=== PATIENT | female | born 1995 | race Two or more races ===

== ENCOUNTER 2019-05-22 18:04 | Emergency (ER) | payer OTHER ==
[2019-05-22] MEDS ORDERED: ONDANSETRON HCL INJ/PF 4 MG/2 ML SDV IV ONE (18:28)
[2019-05-22] MEDS ORDERED: MORPHINE SULFATE 10 MG/ML INJ IV ONE (18:28)
--- NOTE | 2019-05-22 18:30 | ER Document Report ---
ED Medical Screen (RME) - General Chief Complaint: Post Problem Stated Complaint: ABDOMINAL PAIN Time Seen by Provider: 05/22/19 18:19 - HPI Notes: 05/22/19 18:29 23-year-old female to the emergency department with complaints of progressively worsening pelvic pain and vaginal bleeding for the past 2 days. She states that she had her third child 3 days ago at [facility]. She states that she had a natural childbirth and everything seemed to be going okay. However during her stay she began to experience significant pelvic pain. Apparently she was discharged home but then had an episode of syncope at home and was brought back to [facility]. It was found that she had retained products in her uterus and she was taken for D&C. She states that she continues to complain of worsening pain but she was told that it was because she had given naturally and because she was breast-feeding. She states that she has had chills but denies any fevers. She states that she feels lightheaded. She states that she is taking Tylenol, Motrin, iron. I performed a brief medical screening exam of the patient determined that she will need further evaluation and management by me inside provider. I placed initial orders to help expedite her care. - Related Data Allergies/Adverse Reactions: pineapple Allergy (Verified 05/22/19 18:14) Past Medical History - Social History Frequency of alcohol use: None Drug Abuse: None
[2019-05-22] MEDS ORDERED: NORMAL SALINE 1000 ML 1,000 ML IV ONE (18:33)
[2019-05-22 19:17] LABS: ABSOLUTE EOSINOPHILS # (AUTO) 0.1 10^3/uL (0.0-0.6); ABSOLUTE LYMPHOCYTES (AUTO) 2.1 10^3/uL (0.5-4.7); ABSOLUTE MONOCYTES (AUTO) 0.4 10^3/uL (0.1-1.4); ABSOLUTE NEUT (AUTO) 3.1 10^3/uL (1.7-8.2); BASOPHILS % (AUTO) 0.6 % (0-2); EOSINOPHILS % (AUTO) 2.3 % (0-6); HEMATOCRIT 32.5 % (36.0-47.0); HEMOGLOBIN 10.8 g/dL (12.0-15.5); MEAN CORPUSCULAR HEMOGLOBIN 29.7 pg (27.0-33.4); MEAN CORPUSCULAR HGB CONC 33.1 g/dL (32.0-36.0); MEAN CORPUSCULAR VOLUME 90 fl (80-97); MONOCYTES % (AUTO) 6.9 % (3-13); PLATELET COUNT 483 10^3/uL (150-450); RED BLOOD COUNT 3.63 10^6/uL (3.72-5.28); RED CELL DISTRIBUTION WIDTH 14.9 % (11.5-14.0); SEGMENTED NEUTROPHILS % (AUTO) 54.2 % (42-78); TOTAL CELLS COUNTED % (AUTO) 100 %; WHITE BLOOD COUNT 5.7 10^3/uL (4.0-10.5)
[2019-05-22 19:35] LABS: ALBUMIN 3.9 g/dL (3.5-5.0); ALKALINE PHOSPHATASE 150 U/L (38-126); ANION GAP 10 (5-19); ASPARTATE AMINO TRANSFERASE 53 U/L (14-36); BILIRUBIN,DIRECT 0.2 mg/dL (0.0-0.4); BILIRUBIN,TOTAL 0.2 mg/dL (0.2-1.3); BLOOD UREA NITROGEN 14 mg/dL (7-20); CALCIUM 9.4 mg/dL (8.4-10.2); CARBON DIOXIDE 27 mmol/L (22-30); CHLORIDE 103 mmol/L (98-107); GLUCOSE 84 mg/dL (75-110); POTASSIUM 4.4 mmol/L (3.6-5.0); TOTAL PROTEIN 7.2 g/dL (6.3-8.2)
--- NOTE | 2019-05-22 20:16 | RADIOLOGY REPORT (SQ) ---
EXAM DESCRIPTION: US PELVIS COMPLETED DATE/TME: 05/22/2019 18:27 CLINICAL HISTORY: 23 years, Female, eval for retained products. COMPARISON: None. TECHNIQUE: Transabdominal. Grayscale color and spectral Doppler. 58 images LIMITATIONS: None. FINDINGS: Uterus measures 9.4 x 6.1 x 10.7 cm. The endometrial stripe complex is prominent 2.1 cm. It is mildly irregular with fluid and debris within it. No color Doppler seen in this distribution. The cervix measures 2.7 cm. It appears closed. Right ovary measures 4.0 x 2.2 x 2.0 cm. Left ovary measures 3.7 x 1.6 x 1.8 cm. Normal color and spectral Doppler imaging. No significant free fluid IMPRESSION: Retained products. copyright 2011 [email or web address]- All Rights Reserved
[2019-05-22] MEDS ORDERED: PROMETHAZINE HCL INJ 25 MG/1 ML VIAL IV ONE (20:25)
[2019-05-22 21:24] LABS: APPEARANCE,URINE SLIGHTLY-CLOUDY; BILIRUBIN,URINE NEGATIVE (NEGATIVE); COLOR,URINE YELLOW; GLUCOSE, URINE NEGATIVE (NEGATIVE); KETONES,URINE NEGATIVE (NEGATIVE); LEUKOCYTE ESTERASE,URINE TRACE (NEGATIVE); NITRITE,URINE NEGATIVE (NEGATIVE); PROTEIN,URINE NEGATIVE (NEGATIVE); UROBILINOGEN,URINE NEGATIVE mg/dL (<2.0)
[2019-05-23] MEDS ORDERED: METHYLERGONOVINE MALEATE 0.2 MG TABLET PO ONE (00:06)
--- NOTE | 2019-05-23 00:10 | ER Document Report ---
ED General - General Chief Complaint: Post Problem Stated Complaint: ABDOMINAL PAIN Time Seen by Provider: 05/22/19 18:19 - HPI Notes: 23-year-old female 3 para 3 who is 1 week presenting with complaints of pelvic cramping, chills and intermittent passage of small amounts of blood clots about size of a quarter. This lady had an uncomplicated vaginal delivery at [facility] week ago. The patient was apparently readmitted to the inpatient service there because of bleeding related to retained products of conception. She underwent a D&C and was sent home on acetaminophen, ibuprofen, iron, stool softener and vitamin C. She has had some small amount of vaginal bleeding today with passage of some clots about size of a quarter. She complains of some pelvic cramping. She was chilled at home but did not measure fever. She was nauseated without vomiting. She is currently breast-feeding. decided to bring her to [facility] for "second opinion". - Related Data Allergies/Adverse Reactions: pineapple Allergy (Verified 05/22/19 18:14) Past Medical History - General Information source: Patient, Relative - Social History Smoking Status: Never Smoker Frequency of alcohol use: None Drug Abuse: None Family History: Reviewed & Not Pertinent Patient has suicidal ideation: No Patient has homicidal ideation: No Review of Systems - Review of Systems Notes: Constitutional: Negative for fever. HENT: Negative for sore throat. Eyes: Negative for visual changes. Cardiovascular: Negative for chest pain. Respiratory: Negative for shortness of breath. Gastrointestinal: Positive for nausea. Negative for abdominal pain, vomiting or diarrhea. Genitourinary: As per HPI. Musculoskeletal: Negative for back pain. Skin: Negative for rash. Neurological: Negative for headaches, weakness or numbness. 10 point ROS negative except as marked above and in HPI. Physical Exam - Vital signs Vitals: Temp Pulse Resp BP Pulse Ox 98.2 F 92 18 131/82 H 100 05/22/19 18:05 05/22/19 18:05 05/22/19 18:05 05/22/19 18:05 05/22/19 18:05 - Notes Notes: GENERAL: Well-developed well-nourished appearing in no acute distress. SKIN: Good turgor no rashes. HEAD: Normocephalic atraumatic. EYES: PERRLA. EOMI. Conjunctivae and sclerae clear. EARS: CANALS AND TMS CLEAR. NOSE: CLEAR. MOUTH: Moist mucosa. Good dentition. No stridor or edema. No drooling. NECK: Supple. No masses or thyromegaly. No adenopathy. Carotids 2+ without bruits. No JVD. BACK: Symmetrical without tenderness. CHEST: Respirations unlabored. Breath sounds clear and symmetrical. HEART: Regular rhythm. No murmur gallop or rub. ABDOMEN: Minimal suprapubic tenderness. Soft without masses, organomegaly or rebound. Bowel sounds normally active. No bruits. GENITALIA: Deferred. EXTREMITIES: No edema. No calf tenderness. Cap refill less than 1.5 seconds. Dorsalis pedis and posterior tibial pulses 3+ and symmetrical. NEUROLOGICAL: GCS 15. Alert and oriented x3. Fluent speech. Cranial nerves II through XII intact. Sensorimotor and cerebellar normal. Normal tone. PSYCHIATRIC: Appropriate affect. Course - Re-evaluation Re-evalutation: 05/23/19 00:18 Findings discussed with on-call [employer] attending Dr. Montilla at [facility] can resume. He feels at present treatment is appropriate and he would suggest addition of a Methergine taper. This is initiated and prescribed. We talked with the patient and her in some detail regarding findings and recommendations. She will follow-up at outpatient [facility] clinic at [facility] within the next 48 hours and will return here for any new or worsening problems. Continue present meds with the addition of Methergine tapered I am also going to give her some metoclopramide as needed nausea. - Vital Signs Vital signs: Temp Pulse Resp BP Pulse Ox 98.2 F 92 18 131/82 H 100 05/22/19 18:05 05/22/19 18:05 05/22/19 18:05 05/22/19 18:05 05/22/19 18:05 - Laboratory Result Diagrams: 05/22/19 18:53 05/22/19 18:53 Laboratory results interpreted by me: 05/22/19 05/22/19 05/22/19 18:53 18:53 20:45 RBC 3.63 L Hgb 10.8 L Hct 32.5 L RDW 14.9 H Plt Count 483 H AST 53 H Alkaline Phosphatase 150 H Urine Blood MODERATE H Ur Leukocyte Esterase TRACE H - Diagnostic Test Radiology reviewed: Reports reviewed Radiology results interpreted by me: 05/23/19 00:17 Endometrial stripe 2.1 cm per radiologist. Discharge - Discharge Clinical Impression: vaginal bleeding Condition: Stable Disposition: HOME, SELF-CARE Additional Instructions: Return here as needed for new or worsening symptoms: Vaginal bleeding that is considerably heavier than a menstrual period. Pain that is worsening or unimproved Uncontrolled vomiting High fever or shaking chills Overall worsening Follow-up with [facility] clinic at [facility] within the next 48 hours. Prescriptions: Methylergonovine Maleate [Methergine 0.2 Mg Tablet] 0.2 mg PO ASDIR PRN #10 tablet PRN Reason: Metoclopramide HCl [Reglan 10 mg Tablet] 1 - 2 tab PO ASDIR PRN #12 tablet PRN Reason:
[2019-05-23 01:52] VITALS: BP 92/44
== END 2019-05-23 01:52 | disposition home or self-care (01) ==
LOC: ER 18:04
DX: O72.2 Delayed and secondary postpartum hemorrhage (principal); O90.89 Other complications of the puerperium, not elsewhere classified; R10.2 Pelvic and perineal pain; R68.83 Chills (without fever); R11.0 Nausea; Z98.890 Other specified postprocedural states; Z91.018 Allergy to other foods
CPT/HCPCS: 99284; 96361; 96374; 96375; 86900; 86901; 36415; 86850; 85025; 80053; 81001; 76856; 93976; J3490; J2270; J2550; J2405; J7030